=== PATIENT | male | born 1985 | race Caucasian/White ===

== ENCOUNTER 2019-04-10 18:38 | Emergency (ER) | payer SELFPAY ==
[~2019-04-10] VITALS: Ht 175.3 cm; Wt 86.2 kg
[~2019-04-10 18:38] MED LIST: Norco 5-325 Ta1 EACH PO
[2019-04-10] MEDS ORDERED: LAMO100 (18:57)
[2019-04-10] MEDS ORDERED: PROP10 PO (18:57)
[2019-04-10] MEDS ORDERED: Roxicodone5 MG PO (19:19)
== END 2019-04-10 19:26 | disposition home or self-care (01) ==
LOC: ER 18:38
DX: S80.11XA Contusion of right lower leg, initial encounter (principal); W01.0XXA Fall on same level from slipping, tripping and stumbling without subsequent striking against object, initial encounter
CPT/HCPCS: 73590; 99283-25